=== PATIENT | female | born 1990 | race Caucasian/White ===

== ENCOUNTER 2017-02-11 03:18 | Emergency (ER) | payer BC ==
[2017-02-11 03:41] VITALS: BP 138/80
[2017-02-11 04:21] LABS: Hematocrit 40 % (35-47); Hemoglobin 13.4 g/dl (12.0-16.0); Mean Corpuscular HGB Conc 33 g/dl (31-36); Mean Corpuscular Hemoglobin 29 pg (27-31); Mean Corpuscular Volume 88 fL (80-97); Mean Platelet Volume 8 um3 (7.4-10.4); Red Blood Count 4.56 10^6/ul (4.0-5.4); Red Cell Distribution Width 14 % (10.5-15); White Blood Count 10.1 10^3/ul (3.5-10.8)
[2017-02-11 04:21] LABS: Urine Bacteria Absent (Absent)
[2017-02-11 04:23] LABS: Urine Bilirubin Negative (Negative); Urine Glucose N (Negative); Urine Nitrite N (Negative)
[2017-02-11 04:28] LABS: ALT 15 U/L (7-52); AST 16 U/L (13-39); Acetaminophen < 15 mcg/mL; Albumin 3.9 g/dL (3.2-5.2); Alcohol < 10 mg/dL (<10); Alkaline Phosphatase 50 U/L (34-104); Anion Gap 4 mmol/L (2-11); BUN/Creatinine Ratio 18.3 (8-20); Blood Urea Nitrogen 15 mg/dL (6-24); CO2 Carbon Dioxide 27 mmol/L (22-32); Calcium 8.9 mg/dL (8.6-10.3); Chloride 104 mmol/L (101-111); EGFR African American 106.8 (>60); Globulin 2.6 g/dL (2-4); Glucose 93 mg/dL (70-100); Potassium 4.1 mmol/L (3.5-5.0); Salicylate < 2.50 mg/dL (<30); Sodium 135 mmol/L (133-145); Total Protein 6.5 g/dL (6.4-8.9)
[2017-02-11 04:33] LABS: Benzodiazepine Urine Screen None Detected (None Detect)
[2017-02-11 04:40] LABS: TSH (Thyroid Stimulating Horm) 5.36 mcIU/mL (0.34-5.60)
--- NOTE | 2017-02-11 06:49 | ED ---
Keenan Martines Nikita, scribed for Herrera Bautista MD on 02/11/17 at 0359 . Psychiatric Complaint - HPI Summary HPI Summary: This patient is a 26 year old F BIBA to ED with a chief complaint of a panic attack since earlier today. Pt reports she felt this way after waking up. She tried self-soothing, which didnt help. Pt wasnt able to contact her friends, and then proceeded to feel unsafe, scared, and anxious. From then she called 911. The patient rates the pain 0/10 in severity. Symptoms aggravated by nothing. Symptoms alleviated by nothing. Patient reports she took Klonopin. Pt denies SI/HI. - History Of Current Complaint Chief Complaint: EDMentalHealth Time Seen by Provider: 02/11/17 03:42 Hx Obtained From: Patient Hx Last Menstrual Period: 12/31/15 Onset/Duration: Sudden Onset - earlier today, after waking up, Still Present Timing: Constant Character: Anxious - unsafe, scared, panic attack Aggravating Factor(s): Nothing Alleviating Factor(s): Nothing Related History: Positive For: Prior Psychiatric Issues - Allergies/Home Medications Allergies/Adverse Reactions: Allergies Allergy/AdvReac Type Severity Reaction Status Date / Time Amoxicillin Allergy Unknown Unknown Verified 01/17/16 14:15 Reaction Details PMH/Surg Hx/FS Hx/Imm Hx Endocrine/Hematology History: Denies: Hx Diabetes, Hx Thyroid Disease Cardiovascular History: Denies: Hx Hypertension Respiratory History: Denies: Hx Asthma, Hx Chronic Obstructive Pulmonary Disease (COPD) GI History: Denies: Hx Ulcer - Surgical History Surgery Procedure, Year, and Place: 2007: removal of pilonidal cyst Infectious Disease History: No Infectious Disease History: Reports: History Other Infectious Disease - HPV Denies: Hx Clostridium Difficile, Hx Hepatitis, Hx Human Immunodeficiency Virus (HIV), Hx of Known/Suspected MRSA, Hx Shingles, Hx Tuberculosis, Hx Known/ Suspected VRE, Hx Known/Suspected VRSA, Traveled Outside the [place] in Last 30 Days - Family History Known Family History: Positive: Diabetes, Other - Skin cancer, GI disease, anxiety, depression - Social History Alcohol Use: Rare Substance Use Type: Reports: None Smoking Status (MU): Never Smoked Tobacco Have You Smoked in the Last Year: No Review of Systems Negative: Fever Psychological: Other - scared, unsafe, panic attack Positive: Anxious All Other Systems Reviewed And Are Negative: Yes Physical Exam Triage Information Reviewed: Yes Vital Signs On Initial Exam: Initial Vitals Temp Pulse Resp BP Pulse Ox 98.2 F 92 20 138/80 100 02/11/17 03:33 02/11/17 03:33 02/11/17 03:33 02/11/17 03:33 02/11/17 03:33 Vital Signs Reviewed: Yes Appearance: Positive: Well-Appearing, No Pain Distress Skin: Positive: Warm, Skin Color Reflects Adequate Perfusion, Dry Head/Face: Positive: Normal Head/Face Inspection Eyes: Positive: EOMI, VJ ENT: Positive: Normal ENT inspection Neck: Positive: Supple, Nontender Respiratory/Lung Sounds: Positive: Clear to Auscultation, Breath Sounds Present Cardiovascular: Positive: RRR Abdomen Description: Positive: Nontender, Soft Bowel Sounds: Positive: Present Musculoskeletal: Positive: Normal, Strength/ROM Intact Neurological: Positive: Normal, Sensory/Motor Intact, Alert, Oriented to Person Place, Time Psychiatric: Positive: Affect/Mood Appropriate - Mittie Coma Scale Coma Scale Total: 15 Diagnostics - Vital Signs Vital Signs Temp Pulse Resp BP Pulse Ox 02/11/17 03:33 98.2 F 92 20 138/80 100 - Laboratory Lab Results: Lab Results 02/11/17 02/11/17 02/11/17 Range/Units 03:22 03:22 03:46 WBC (3.5-10.8) 10^3/ul RBC (4.0-5.4) 10^6/ul Hgb (12.0-16.0) g/dl Hct (35-47) % MCV (80-97) fL MCH (27-31) pg MCHC (31-36) g/dl RDW (10.5-15) % Plt Count (150-450) 10^3/ul MPV (7.4-10.4) um3 Neut % (Auto) (38-83) % Lymph % (Auto) (25-47) % King % (Auto) (1-9) % Eos % (Auto) (0-6) % Baso % (Auto) (0-2) % Absolute Neuts (auto) (1.5-7.7) 10^3/ul Absolute Lymphs (auto) (1.0-4.8) 10^3/ul Absolute Monos (auto) (0-0.8) 10^3/ul Absolute Eos (auto) (0-0.6) 10^3/ul Absolute Basos (auto) (0-0.2) 10^3/ul Absolute Nucleated RBC 10^3/ul Nucleated RBC % Sodium 135 (133-145) mmol/L Potassium 4.1 (3.5-5.0) mmol/L Chloride 104 (101-111) mmol/L Carbon Dioxide 27 (22-32) mmol/L Anion Gap 4 (2-11) mmol/L BUN 15 (6-24) mg/dL Creatinine 0.82 (0.51-0.95) mg/dL Est GFR ( Amer) 106.8 (>60) Est GFR (Non-Af Amer) 83.0 (>60) BUN/Creatinine Ratio 18.3 (8-20) Glucose 93 (70-100) mg/dL Calcium 8.9 (8.6-10.3) mg/dL Total Bilirubin 0.50 (0.2-1.0) mg/dL AST 16 (13-39) U/L ALT 15 (7-52) U/L Alkaline Phosphatase 50 (34-104) U/L Total Protein 6.5 (6.4-8.9) g/dL Albumin 3.9 (3.2-5.2) g/dL Globulin 2.6 (2-4) g/dL Albumin/Globulin Ratio 1.5 (1-3) TSH 5.36 (0.34-5.60) mcIU/mL Beta HCG, Quant < 0.60 mIU/mL Urine Color Straw Urine Appearance Clear Urine pH 6 (5-9) Ur Specific [place] 1.000 L (1.010-1.030) Urine Protein N (Negative) Urine Ketones Negative (Negative) Urine Blood N (Negative) Urine Nitrate N (Negative) Urine Bilirubin Negative (Negative) Urine Urobilinogen N (Negative) Ur Leukocyte Esterase Negative (Negative) Urine WBC (Auto) Absent (Absent) Urine RBC (Auto) Trace(0-2/hpf) (Absent) Urine Bacteria Absent (Absent) Urine Glucose N (Negative) Urine Ascorbic Acid N (Negative) Salicylates < 2.50 (<30) mg/dL Urine Opiates Screen None detected (None Detect) Acetaminophen < 15 mcg/mL Ur Barbiturates Screen None detected (None Detect) Ur Phencyclidine Scrn None detected (None Detect) Ur Amphetamines Screen None detected (None Detect) U Benzodiazepines Scrn None detected (None Detect) Urine Cocaine Screen None detected (None Detect) U Cannabinoids Screen None detected (None Detect) Serum Alcohol < 10 (<10) mg/dL 02/11/17 Range/Units 03:46 WBC 10.1 (3.5-10.8) 10^3/ul RBC 4.56 (4.0-5.4) 10^6/ul Hgb 13.4 (12.0-16.0) g/dl Hct 40 (35-47) % MCV 88 (80-97) fL MCH 29 (27-31) pg MCHC 33 (31-36) g/dl RDW 14 (10.5-15) % Plt Count 281 (150-450) 10^3/ul MPV 8 (7.4-10.4) um3 Neut % (Auto) 60.5 (38-83) % Lymph % (Auto) 31.1 (25-47) % King % (Auto) 6.5 (1-9) % Eos % (Auto) 1.0 (0-6) % Baso % (Auto) 0.9 (0-2) % Absolute Neuts (auto) 6.1 (1.5-7.7) 10^3/ul Absolute Lymphs (auto) 3.1 (1.0-4.8) 10^3/ul Absolute Monos (auto) 0.7 (0-0.8) 10^3/ul Absolute Eos (auto) 0.1 (0-0.6) 10^3/ul Absolute Basos (auto) 0.1 (0-0.2) 10^3/ul Absolute Nucleated RBC 0 10^3/ul Nucleated RBC % 0 Sodium (133-145) mmol/L Potassium (3.5-5.0) mmol/L Chloride (101-111) mmol/L Carbon Dioxide (22-32) mmol/L Anion Gap (2-11) mmol/L BUN (6-24) mg/dL Creatinine (0.51-0.95) mg/dL Est GFR ( Amer) (>60) Est GFR (Non-Af Amer) (>60) BUN/Creatinine Ratio (8-20) Glucose (70-100) mg/dL Calcium (8.6-10.3) mg/dL Total Bilirubin (0.2-1.0) mg/dL AST (13-39) U/L ALT (7-52) U/L Alkaline Phosphatase (34-104) U/L Total Protein (6.4-8.9) g/dL Albumin (3.2-5.2) g/dL Globulin (2-4) g/dL Albumin/Globulin Ratio (1-3) TSH (0.34-5.60) mcIU/mL Beta HCG, Quant mIU/mL Urine Color Urine Appearance Urine pH (5-9) Ur Specific [place] (1.010-1.030) Urine Protein (Negative) Urine Ketones (Negative) Urine Blood (Negative) Urine Nitrate (Negative) Urine Bilirubin (Negative) Urine Urobilinogen (Negative) Ur Leukocyte Esterase (Negative) Urine WBC (Auto) (Absent) Urine RBC (Auto) (Absent) Urine Bacteria (Absent) Urine Glucose (Negative) Urine Ascorbic Acid (Negative) Salicylates (<30) mg/dL Urine Opiates Screen (None Detect) Acetaminophen mcg/mL Ur Barbiturates Screen (None Detect) Ur Phencyclidine Scrn (None Detect) Ur Amphetamines Screen (None Detect) U Benzodiazepines Scrn (None Detect) Urine Cocaine Screen (None Detect) U Cannabinoids Screen (None Detect) Serum Alcohol (<10) mg/dL Result Diagrams: 02/11/17 03:46 02/11/17 03:46 Lab Statement: Any lab studies that have been ordered have been reviewed, and results considered in the medical decision making process. Course/Dx - Course Assessment/Plan: This patient is a 26 year old F BIBA to ED with a chief complaint of a panic attack since earlier today. Pt reports she felt this way after waking up. She tried self-soothing, which didnt help. Pt wasnt able to contact her friends, and then proceeded to feel unsafe, scared, and anxious. From then she called 911. The patient rates the pain 0/10 in severity. Symptoms aggravated by nothing. Symptoms alleviated by nothing. Patient reports she took Klonopin. Pt denies SI/HI. Medications reviewed. BP noted and advised to follow up with PCP. DISCHARGE HOME AFTER MHE - Differential Dx/Clinical Impression Provider Diagnosis: Mental health problem Discharge - Discharge Plan Condition: Stable Disposition: HOME Referrals: No Primary Care Phys,NOPCP [Primary Care Provider] - Additional Instructions: Per completion of a mental health evaluation, you are cleared for release and do not require inpatient psychiatric hospitalization at this time. Please go to nearest emergency room or call 911 if safety concerns arise or condition worsens. IMPORTANT PHONE NUMBERS: [facility] Services Unit: [facility] Emergency [facility] Flex Unit: Suicide Prevention and Crisis Services: National Suicide Prevention Lifeline: [phone] 657-DBGK ([phone]) [facility] Clinic: [facility] Outreach for Older Adults: [facility] Mental Health Association: [facility]: [facility] Police: [facility] Sheriff: [place] [employer]: OUTPATIENT SERVICES You have been referred to your outpatient provider Malina Barraza NP. It is our recommendation that you call your provider to secure an appointment on their next business day. No changes or adjustments were made to your medication regimen during this evaluation. Continue medications as prescribed by your outpatient providers. Malina Barraza NPP [address], [place] [address] The [facility] Mobile Crisis Team will be in contact with you later today, Saturday February 11, 2017. If you require further assistance connecting to outpatient providers, please contact our Mental Health Unit at . The documentation as recorded by the Keenan garcia Nikita accurately reflects the service I personally performed and the decisions made by me, Herrera Bautista MD.
== END 2017-02-11 05:27 | disposition home or self-care (01) ==
LOC: ED 03:18
DX: Z00.8 Encounter for other general examination (principal); F41.9 Anxiety disorder, unspecified
CPT/HCPCS: 36415; 80053; 80307; 80320; 80329; 81003; 84443; 84702; 85025; 99284; G0480

== ENCOUNTER 2017-05-26 16:37 | Emergency (ER) | payer BC ==
[2017-05-26 16:53] VITALS: BP 117/67
--- NOTE | 2017-05-26 17:32 | UC ---
Throat Pain/Nasal Hossein HPI - HPI Summary HPI Summary: Pt presents with ST and sinus congestion that started 1 week ago. Over the last 2-3 days she developed a dry cough and body aches. She has been taking mucinex without relief. Denies fever, chills, SOB, chest pain, abdominal pain, N/V/D/C - History of Current Complaint Chief Complaint: UCGeneralIllness Stated Complaint: URI Time Seen by Provider: 05/26/17 17:32 Hx Obtained From: Patient Hx Last Menstrual Period: 04/26/17 Onset/Duration: Gradual Onset Severity: Moderate Pain Intensity: 5 Pain Scale Used: 0-10 Numeric Cough: Nonproductive - Allergies/Home Medications Allergies/Adverse Reactions: Allergies Allergy/AdvReac Type Severity Reaction Status Date / Time Amoxicillin Allergy Unknown Unknown Verified 05/26/17 16:53 Reaction Details Home Medications: Home Medications Amphetamine-Dextroamphetamine [Adderall 10 mg-] 10 mg PO BID PRN MDD 20 [History Confirmed 05/26/17] Diazepam TAB(*) [Valium TAB(*)] 2 mg PO QID PRN 05/26/17 [History Confirmed 07/12] PMH/Surg Hx/FS Hx/Imm Hx Previously Healthy: Yes Psychological History: Anxiety, Depression - Surgical History Surgical History: Yes Surgery Procedure, Year, and Place: 2007: removal of pilonidal cyst - Family History Known Family History: Positive: Diabetes, Other - Skin cancer, GI disease, anxiety, depression - Social History Occupation: Employed Full-time Lives: With Family Alcohol Use: None Substance Use Type: None Smoking Status (MU): Never Smoked Tobacco Have You Smoked in the Last Year: No Review of Systems Constitutional: Other - Body aches Skin: Negative Eyes: Negative ENT: Nasal Discharge, Sinus Congestion, Sinus Pain/Tenderness Respiratory: Cough Cardiovascular: Negative Gastrointestinal: Negative All Other Systems Reviewed And Are Negative: Yes Physical Exam Triage Information Reviewed: Yes Appearance: Well-Appearing, Well-Nourished Vital Signs: Initial Vital Signs Temp 98.4 F 05/26/17 16:49 Pulse 76 05/26/17 16:49 Resp 18 05/26/17 16:49 BP 117/67 05/26/17 16:49 Pulse Ox 100 05/26/17 16:49 Vital Signs Reviewed: Yes Eyes: Positive: Conjunctiva Clear. Negative: Conjunctiva Inflamed, Discharge ENT: Positive: Hearing grossly normal, Pharynx normal, Nasal congestion, Nasal drainage, TMs normal, Sinus tenderness, Uvula midline. Negative: Pharyngeal erythema, TM bulging, TM dull, TM red, Tonsillar swelling, Tonsillar exudate, Hoarse voice Neck: Positive: Supple, Nontender, No Lymphadenopathy Respiratory: Positive: Chest non-tender, Lungs clear, No respiratory distress, No accessory muscle use, Wheezing - Mild left lung > right lung Cardiovascular: Positive: RRR, No Murmur, Pulses Normal Neurological: Positive: Alert Psychological: Positive: Age Appropriate Behavior Skin: Negative: rashes Throat Pain/Nasal Course/Dx - Course Course Of Treatment: POC flu negative. Suspect sinusitis with bronchitis. Rx for tessalon, albuterol HFA, and zpak. - Differential Dx/Diagnosis Differential Diagnosis/HQI/PQRI: Laryngitis, Otitis Media, Sinusitis, Tonsillitis, URI Provider Diagnoses: Sinusitis. Bronchitis Discharge - Discharge Plan Condition: Stable Disposition: HOME Prescriptions: Albuterol HFA INHALER* [Ventolin HFA Inhaler*] 2 puff INH Q6H PRN #1 mdi PRN Reason: Sob/Wheezing Azithromycin TAB* [Zithromax TAB (Z-DELLA) 250 mg #6 tabs] 2 tab PO .TODAY, THEN 1 DAILY #1 della Benzonatate CAP* [Tessalon 100 MG CAP*] 100 mg PO TID #21 cap Patient Education Materials: Sinusitis (ED), Acute Bronchitis (ED) Forms: *Work Release Referrals: Malcolm Childs MD [Primary Care Provider] - Additional Instructions: If you develop a fever, shortness of breath, chest pain, new or worsening symptoms - please call your PCP or go to the ED.
== END 2017-05-26 18:25 | disposition home or self-care (01) ==
LOC: UCEAST 16:37
DX: J32.9 Chronic sinusitis, unspecified (principal); J40 Bronchitis, not specified as acute or chronic; Z88.1 Allergy status to other antibiotic agents; F41.9 Anxiety disorder, unspecified; F32.9 Major depressive disorder, single episode, unspecified
CPT/HCPCS: 87502; 99212; G0463

== ENCOUNTER 2017-11-24 11:08 | Emergency (ER) | payer BC ==
[2017-11-24 11:15] VITALS: BP 119/75
[2017-11-24] MEDS ORDERED: Ondansetron ODT TAB* 4 MG PO ONE (11:37)
--- NOTE | 2017-11-24 11:43 | UC ---
Headache HPI - HPI Summary HPI Summary: The patient is a 27-year-old female who presents with a left hemicranial headache that started this a.m. The headache started up gradually around her left eye and then after 20 minutes got markedly worse. The headache radiates to her left lateral neck. When the headache was at its worst she had severe nausea and was diaphoretic. She then had an episode of diarrhea. She has taken aspirin and Advil and Tylenol and her headache is improving. She has never had a CAT scan of the brain. She has had a diagnosis of migraines in the past. This is the most intense headache she has ever and is atypical of her usual migraines. - History Of Current Complaint Chief Complaint: UCHeadache Stated Complaint: HEADACHE/NAUSEA Time Seen by Provider: 11/24/17 11:26 Hx Obtained From: Patient Hx Last Menstrual Period: bcp Onset/Duration: Gradual Onset, Lasting Hours Onset Of Symptoms: Still Present Initially Headache Was: "Worst Headache Ever", Initial Pain Scale(0-10)= - 4 Currently Pain Is: Current Pain Scale(0-10)= - 8 Pain Intensity: 8 Pain Scale Used: 0-10 Numeric Timing: Constant Character: Throbbing Location of Headache: Frontal - L Aggravating Factor(s): Nothing Allevating Factor(s): Medication Associated Signs And Symptoms: Positive: Nausea, Neck Pain - Allergies/Home Medications Allergies/Adverse Reactions: Allergies Allergy/AdvReac Type Severity Reaction Status Date / Time amoxicillin Allergy anaph Verified 11/24/17 11:18 Home Medications: Home Medications Desogestrel-Ethinyl Estradiol [Novtequila 28 Day Tablet] 1 tab PO DAILY 11/24/17 [ History Confirmed 11/24/17] PMH/Surg Hx/FS Hx/Imm Hx Previously Healthy: Yes Psychological History: Anxiety, Depression - Surgical History Surgical History: Yes Surgery Procedure, Year, and Place: 2008: removal of pilonidal cyst - Family History Known Family History: Positive: Hypertension, Diabetes, Other - Skin cancer, GI disease, anxiety, depression - Social History Alcohol Use: None Substance Use Type: None Smoking Status (MU): Never Smoked Tobacco Have You Smoked in the Last Year: No Review of Systems Eyes: Photophobia ENT: Other - phnophobia Gastrointestinal: Diarrhea, Nausea Neurological: Headache Is Patient Immunocompromised?: No All Other Systems Reviewed And Are Negative: Yes Physical Exam Triage Information Reviewed: Yes Appearance: Well-Appearing, No Pain Distress, Well-Nourished Vital Signs: Initial Vital Signs Temp 97.1 F 11/24/17 11:12 Pulse 80 11/24/17 11:12 Resp 18 11/24/17 11:12 BP 119/75 11/24/17 11:12 Pulse Ox 100 11/24/17 11:12 Vital Signs Reviewed: Yes Eye Exam: Normal Eyes: Positive: Conjunctiva Clear, Other: - eomi/perrl, fundi benign ENT: Positive: Hearing grossly normal. Negative: Nasal congestion, Nasal drainage, Trismus, Muffled voice, Hoarse voice Neck: Positive: Supple, Nontender, No Lymphadenopathy Respiratory: Positive: Lungs clear, Normal breath sounds, No respiratory distress Cardiovascular: Positive: RRR, No Murmur Musculoskeletal: Positive: ROM Intact, No Edema Neurological: Positive: Alert, Muscle Tone Normal, Other: - non focal exam , GCS 15/15 Psychological Exam: Normal Skin Exam: Normal Diagnostics - Radiology No standard instances Xray Interpretation: No Acute Changes - CT brain Radiology Interpretation Completed By: Radiologist Re-Evaluation - Re-Evaluation First Eval Re-Evaluation Time: 12:47 Change: Improved - no nausea, GALLAGHER 4 Headache Course/Dx - Differential Dx/Diagnosis Provider Diagnoses: migraine headache Discharge - Sign-Out/Discharge Documenting (check all that apply): Discharge/Admit/Transfer - Discharge Plan Condition: Stable Disposition: HOME Patient Education Materials: Migraine Headache (ED) Forms: *Work Release Referrals: Malcolm Childs MD [Primary Care Provider] - 2 Days (recheck in 2-7 days) Additional Instructions: recheck for new or worsening symptoms - Billing Disposition and Condition Condition: STABLE Disposition: Home
--- NOTE | 2017-11-24 12:12 | RAD ---
HISTORY: left hemicranial GALLAGHER COMPARISONS: None TECHNIQUE: Multiple contiguous axial CT scans were obtained of the head without intravenous contrast. FINDINGS: HEMORRHAGE/INFARCT: There is no hemorrhage or acute infarct. MASSES/SHIFT: There is no mass or shift. EXTRA-AXIAL SPACES: There are no extra-axial fluid collections. SULCI AND VENTRICLES: The sulci and ventricles are normal in size and position for the patient's stated age. CEREBRUM: There are no focal parenchymal abnormalities. BRAINSTEM: There are no focal parenchymal abnormalities. CEREBELLUM: There are no focal parenchymal abnormalities. VESSELS: The vessels are grossly normal. PARANASAL SINUSES: The paranasal sinuses are clear. ORBITS: The orbits are unremarkable. BONES AND SOFT TISSUE: No bone or soft tissue abnormalities are noted. OTHER: None IMPRESSION: NO ACUTE INTRACRANIAL PATHOLOGY.
== END 2017-11-24 13:04 | disposition home or self-care (01) ==
LOC: UCEAST 11:08
DX: G43.909 Migraine, unspecified, not intractable, without status migrainosus (principal); Z88.0 Allergy status to penicillin; M54.2 Cervicalgia; R19.7 Diarrhea, unspecified
CPT/HCPCS: 70450; 99212; A9270-GY; G0463

== ENCOUNTER 2018-03-14 01:41 | Observation (INO) | payer SELFPAY ==
--- NOTE | 2018-03-14 02:36 | ED ---
Complex/Multi-Sys Presentation - HPI Summary HPI Summary: 27 year old F presenting to [facility] accompanied by male friend Fernando with a chief complaint of vomiting x1 since 00:00 today. Symptoms aggravated by nothing. Symptoms alleviated by nothing. Patient denies chest pain. Patient states that she took her daily medication twice yesterday. She took them once in the morning yesterday at 10:00, then again at 16:00 yesterday because she got confused. She looked at her pill organizer and realized she took her medications twice. At 22:00 yesterday, patient started feeling dizzy. Then at 00 :00 she vomited. Patient called poison control, who referred her to ED. She additionally complains of headache, neck pain, and abdominal discomfort. Hx anxiety and depression. She denies suicidal ideation. LN 03/01/18. At 10:00 yesterday: 300 mg Wellbutrin XR 100 mg Wellbutrin SR 60 mg Fluoxetine 2000 mg Vitamin D Iron supplement Aviane At 16:00 yesterday: 300 mg Wellbutrin XR 100 mg Wellbutrin SR 60 mg Fluoxetine 2000 mg Vitamin D Iron supplement Aviane At 22:00 yesterday: 10pm Tylenol x2 At 00:00 today: 5 mg Diazepam - History Of Current Complaint Chief Complaint: EDNauseaVomitDiarrh Time Seen by Provider: 03/14/18 02:22 Hx Obtained From: Patient Onset/Duration: Sudden Onset, Lasting Hours - 00:00 today, Still Present Aggravating Factor(s): Nothing Alleviating Factor(s): Nothing Associated Signs And Symptoms: Positive: Other - Dizziness, headache, neck pain , and abdominal discomfort. Negative: Chest Pain - Allergies/Home Medications Allergies/Adverse Reactions: Allergies Allergy/AdvReac Type Severity Reaction Status Date / Time amoxicillin Allergy anaph Verified 03/14/18 01:51 Home Medications: Home Medications BuPROPion XL* [Bupropion XL*] 1 tab PO QAM 03/14/18 [History Confirmed 03/14/18] buPROPion SR TAB* [Wellbutrin SR TAB*] 1 tab PO QAM 03/14/18 [History Confirmed 03/14/18] PMH/Surg Hx/FS Hx/Imm Hx Previously Healthy: No Endocrine/Hematology History: Denies: Hx Diabetes, Hx Thyroid Disease Cardiovascular History: Denies: Hx Hypertension Respiratory History: Denies: Hx Asthma, Hx Chronic Obstructive Pulmonary Disease (COPD) GI History: Denies: Hx Ulcer Psychiatric History: Reports: Hx Anxiety, Hx Depression Denies: Hx of Violent Episodes Against Others - Surgical History Surgery Procedure, Year, and Place: 2007: removal of pilonidal cyst Infectious Disease History: No Infectious Disease History: Reports: History Other Infectious Disease - HPV Denies: Hx Clostridium Difficile, Hx Hepatitis, Hx Human Immunodeficiency Virus (HIV), Hx of Known/Suspected MRSA, Hx Shingles, Hx Tuberculosis, Hx Known/ Suspected VRE, Hx Known/Suspected VRSA, Traveled Outside the [place] in Last 30 Days - Family History Known Family History: Positive: Hypertension, Diabetes, Other - Skin cancer, GI disease, anxiety, depression - Social History Alcohol Use: None Hx Substance Use: No Substance Use Type: Reports: None Hx Tobacco Use: No Smoking Status (MU): Never Smoked Tobacco Have You Smoked in the Last Year: No Review of Systems Negative: Chest Pain Positive: Vomiting - x1, Other - abdominal discomfort Positive: Other - neck pain Neurological: Other - dizziness Positive: Headache Positive: Other - NEGATIVE: suicidal ideation All Other Systems Reviewed And Are Negative: Yes Physical Exam - Summary Physical Exam Summary: GENERAL: Patient is a well-developed and nourished F who is lying comfortable in the stretcher. Patient is not in any acute respiratory distress. HEAD AND FACE: Normocephalic EYES: PERRLA, EOMI x 2. EARS: Hearing grossly intact. MOUTH: Oropharynx within normal limits. NECK: Supple, trachea is midline, no adenopathy, no JVD, no carotid bruit. CHEST: Symmetric, no tenderness at palpation LUNGS: Clear to auscultation bilaterally. No wheezing or crackles. CVS: Regular rate and rhythm, S1 and S2 present, no murmurs or gallops appreciated. ABDOMEN: Soft, non-tender. Bowel sounds are normal. No abdominal abnormal pulsations. EXTREMITIES: Full ROM in all major joints, no edema, no cyanosis or clubbing. NEURO: Alert and oriented x 3. No acute neurological deficits. Speech is normal and follows commands. SKIN: Dry and warm Triage Information Reviewed: Yes Vital Signs On Initial Exam: Initial Vitals Temp Pulse Resp BP Pulse Ox 97.1 F 77 18 130/79 100 03/14/18 01:49 03/14/18 01:49 03/14/18 01:49 03/14/18 01:49 03/14/18 01:49 Vital Signs Reviewed: Yes Diagnostics - Vital Signs Vital Signs Temp Pulse Resp BP Pulse Ox 03/14/18 01:49 97.1 F 77 18 130/79 100 - Laboratory Lab Statement: Any lab studies that have been ordered have been reviewed, and results considered in the medical decision making process. - EKG 0312 Cardiac Rate: NL - 81 BPM EKG Rhythm: Sinus Rhythm EKG Interpretation: Normal intervals 0334 Cardiac Rate: NL - 85 BPM EKG Rhythm: Sinus Rhythm EKG Interpretation: Left atrial enlargement Complex Multi-Symp Course/Dx Course Of Treatment: 27 year old F presenting to [facility] accompanied by male friend Fernando with a chief complaint of vomiting x1 since 00:00 today. Per nurse who spoke with poison control, patient should be monitored on secured entrance monitor for 24 hours since she took more than 400 mg of Wellbutrin, so patient is at risk for seizure and serotonin syndrome. Recommended to watch for temperature, and tachycardia. Also recommends EKG. Case discussed with hospitalist, Dr. Best. I discussed results with patient. The patient agrees with this plan. - Diagnoses Provider Diagnoses: Accidental overdose - Physician Notifications Discussed Care Of Patient With: Anne Best Time Discussed With Above Provider: 03:00 Instructed by Provider To: Other - Dr. Best, hospitalist, agrees to admit patient. Discharge - Sign-Out/Discharge Documenting (check all that apply): Patient Departure - Admit - Discharge Plan Condition: Improved Disposition: ADMITTED TO [facility] - Billing Disposition and Condition Condition: IMPROVED Disposition: Admitted to [facility] - Attestation Statements Document Initiated by Scribe: Yes Documenting Scribe: Bettina Taylor Provider For Whom Scribe is Documenting (Include Credential): Facundo Reese MD Scribe Attestation: I, Bettina Taylor, scribed for Facundo Reese MD on 03/15/18 at 0319. Scribe Documentation Reviewed: Yes Provider Attestation: The documentation as recorded by the scribe, Bettina Taylor accurately reflects the service I personally performed and the decisions made by me, Facundo Reese MD
[2018-03-14] MEDS ORDERED: Ondansetron ODT TAB* 4 MG SL ONE (03:06)
[2018-03-14] MEDS ORDERED: Ibuprofen TAB* 600 MG PO ONE (03:07)
[2018-03-14] MEDS ORDERED: Acetaminophen TAB* 325 MG PO PRN (04:08)
[2018-03-14] MEDS ORDERED: Diazepam TAB(*) 5 MG PO PRN (04:18)
[2018-03-14] MEDS ORDERED: Ondansetron INJ* 2 MG/ML VIAL IV PRN (04:21)
[2018-03-14 07:40] VITALS: BP 128/54
--- NOTE | 2018-03-14 08:56 | HP ---
HISTORY AND PHYSICAL: DATE OF ADMISSION: 03/14/18 TIME OF ADMISSION: 4 a.m. PRIMARY CARE PHYSICIAN: Dr. Childs. CHIEF COMPLAINT: Accidental Wellbutrin overdose. HISTORY OF PRESENT ILLNESS: This is a 27-year-old female with a history of depression who presents after accidentally taking her Wellbutrin and fluoxetine twice yesterday. She takes her medications in the morning usually, but then accidentally also took them in the afternoon because she thought she had forgotten the morning dose. She realized it after she took the second dose and called Poison Control who directed her to the emergency department. She is currently having some achiness, a little chest discomfort that lasted approximately 15 seconds and nausea. She denies intentional overdose and no suicidal ideations or intentions. She has no palpitations. No fevers or chills. No diarrhea. She does feel that she is a little confused, but also admits that she thinks that might be because it was the middle of the night. Her boyfriend is here with her and he thinks she is herself. Her doses of Wellbutrin and fluoxetine are 400 mg and 60 mg daily respectively, so she took a total of 800 mg of Wellbutrin and 120 mg of fluoxetine within 6 hours between the hours of 10 a.m. and 4 p.m.; the last ingestion was 4 p.m. PAST MEDICAL HISTORY: 1. Anxiety and depression. 2. Iron deficiency. PAST SURGICAL HISTORY: None. FAMILY HISTORY: Hypertension and diabetes. SOCIAL HISTORY: She does not smoke cigarettes. She does not use alcohol. She is starting a new job at [employer] on Thursday. REVIEW OF SYSTEMS: As per the HPI. PHYSICAL EXAMINATION GENERAL: Alert, well-appearing female, in no distress. Her boyfriend is at the bedside. VITAL SIGNS: Temperature 97.1, heart rate 79, respiratory rate 21, pulse ox 100 % on room air, blood pressure 127/77. HEENT: Pupils equal, round, and reactive to light. No nystagmus. No conjunctival injection. Oral mucosa is moist. No pharyngeal exudates. NECK: No JVP. No cervical adenopathy. LUNGS: Clear bilaterally. CHEST: Regular rate and rhythm. No murmurs. ABDOMEN: Soft, nontender, nondistended. No guarding or rebound. EXTREMITIES: Strength 5/5 throughout. Sensation is intact. NEUROLOGIC: She is oriented x3. Follows all commands and answers my questions appropriately. IMAGING: EKG: Normal sinus rhythm at 85, normal axis, normal intervals, no ST or T changes. ASSESSMENT AND PLAN: This is a 27-year-old female with history of anxiety and depression who presents with an accidental overdose of Wellbutrin and fluoxetine. Accidental overdose. She is symptomatic with some nausea, vomiting, dizziness, and achiness and she agrees to be observed until 4 p.m. today with Poison Control and they recommend monitoring on telemetry. She is at risk for seizures and serotonin syndrome. They recommended no need for labs since her QTc is normal; however, if her QTc prolongs, she should have electrolytes drawn. We will give her supportive care with antiemetics as needed and IV fluids. We will hold her Wellbutrin and fluoxetine. Poison Control recommends monitoring her until 24 hours after her last ingestion, which was 4 p.m. on . She seizure precautions. [id number]/[facility] #: [id number] CLAIRE
[2018-03-14] MEDS ORDERED: Cholecalciferol TAB* 1000 UNITS PO SCH (09:00)
--- NOTE | 2018-03-14 12:51 | DS ---
CC: Dr. Childs DISCHARGE SUMMARY: DATE OF ADMISSION: DATE OF DISCHARGE: 03/14/18 HISTORY OF PRESENT ILLNESS/HOSPITAL COURSE: This 27-year-old woman was admitted for accidental overd ose of fluoxetine and bupropion. She took her usual morning medications on Thursday, the day of admi ssion. She has a 7-day container. at 4 in the afternoon, she became worried that she had not taken i t. She mistakenly looked at the Thursday part of the 7-day container and so there were pills there and took them, having therefore taken double the dose of fluoxetine and bupropion. Whether she realized that at first or not is not clear, around midnight, her boyfriend was concerned and suggested they c all Poison Control. She was advised to come to the emergency room. She was admitted for seizure pre cautions and for monitoring of her QTc interval. Her QTc interval has maintained. Corrected QTc has stayed normal until the time of this dictation. She will have another EKG with monitoring of her QTc just before discharged at 4 p.m. today. She di tuyet grant in the hospital. She was given vitamin D, her usual dose as well as p.r.n. diazepam, acetamin ophen, ibuprofen, ondansetron p.o., all p.r.n. She was advised to resume her fluoxetine and bupropio n on Thursday morning 03/15/18. FINAL DIAGNOSES: 1. Accidental medication overdose. 2. History of anxiety and depression. DISCHARGE MEDICATIONS: 1. Fluoxetine 60 mg daily. 2. Vitamin D3 2000 units daily. 3. Iron 90 mg daily. 4. Diazepam 5 mg four times a day, p.r.n. 5. Bupropion SR one tablet every morning. 6. Bupropion XL one tablet every morning. CONDITION ON DISCHARGE: Good. DISPOSITION ON DISCHARGE: Home. [id number]/[facility] #: [id number]
== END 2018-03-14 12:55 | disposition home or self-care (01) ==
LOC: ED 01:41 → MEDTELE 04:08
PROVIDERS: ADMIT Internal Medicine; ATTEND Internal Medicine
DX: T43.221A Poisoning by selective serotonin reuptake inhibitors, accidental (unintentional), initial encounter (principal); T43.291A Poisoning by other antidepressants, accidental (unintentional), initial encounter; F41.8 Other specified anxiety disorders; Y92.9 Unspecified place or not applicable; E61.1 Iron deficiency; R51 Headache
CPT/HCPCS: 93005; 96374; 96375; 99284; A9270-GY; G0378

== ENCOUNTER 2019-05-13 09:07 | Emergency (ER) | payer OTHER ==
--- OUTSIDE RECORDS SUMMARY | 2019-05-13 09:12 | XMS REPORT | Continuity of Care Document ---
:1990 External Reference #:[id number] Author Name Tameka Lawrence MD (transmitted by agent of provider Valorie Emerson) Address [address], [address] [place] [address] Care Team Providers Name Role Phone Malcolm Childs MD - Internal Care Team Information Piece Work Checker [phone] Medicine Problems Active Problems Provider Date Poisoning by other antidepressants, accidental Anne Best DO Onset: (unintentional), initial encounter Chest pain Anne Best DO Onset: 03/14/2018 Anxiety state Anne Best DO Onset: 03/14/2018 Iron deficiency Anne Best DO Onset: 03/14/2018 Social History Type Date Description Comments Sex Unknown Tobacco Use Start: Unknown Patient has never smoked Allergies, Adverse Reactions, Alerts Active Allergies Reaction Severity Comments Date Amoxicillin anaphylaxis Severe 02/24/2019 Medications Active Medications SIG Qnty Indications Ordering Provider Date Wellbutrin XL 1 by mouth every Unknown 300mg day Tablets ER 24HR Clindamycin apply externally at Unknown Phos-Benzoyl Perox bedtime 1-5% Gel Diazepam take 1 tab by mouth Unknown 5mg Tablets every 4 hrs. as needed Fluoxetine HCL 1 by mouth every Unknown 20mg day Capsules Fluoxetine HCL 1 by mouth every Unknown 40mg day Capsules Iron Unknown Vitamin D by mouth everyday Unknown 1000Unit Tablets Immunizations Description No Information Available Vital Signs Date Vital Result Comment 04/01/2019 7:50am Height 62 inches 5'2" Weight 300.00 lb Heart Rate 100 /min BP Systolic 118 mmHg BP Diastolic 68 mmHg O2 % BldC Oximetry 99 % BMI (Body Mass Index) 54.9 kg/m2 Results Description No Information Available Procedures Description No Information Available Medical Devices Description No Information Available Encounters Type Date Location Provider Dx Diagnosis Office Visit 04/01/2019 Pul[facility]ology [facility] Sleep Tameka Lawrence MD R06.83 Snoring 8:00a [facility] R53.83 Other fatigue Assessments Date Code Description Provider 04/01/2019 R06.83 Snoring Tameka Lawrence MD 04/01/2019 R53.83 Other fatigue Tameka Lawrence MD Plan of Treatment Future Appointment(s):05/13/2019 8:00 am - Shari Ye NP at [facility]04/01/2019 - Tameka Lawrence, MDR06.83 SnoringNew Orders:Sleep Study, Ordered: 04/01/19R53.83 Other fatigue Functional Status Description No Information Available Mental Status Description No Information Available Referrals Description No Information Available
--- OUTSIDE RECORDS SUMMARY | 2019-05-13 09:12 | XMS REPORT | Summary of Care ---
:1990 Author Organization [facility] Address [address] [place] [address] Care Team Providers Name Role Phone Malcolm Childs Primary Care Provider Reason for Visit Reason Comments Weight Check Patient has gained two pounds. Encounter Details Date Type Department Care Team Description 04/27/2019 Office Visit [facility] Malcolm Childs, Extreme obesity (Primary Dx); Medicine Missed menses [address] [place] [address] [place] [address] [phone] Allergies Active Allergy Reactions Severity Noted Date Comments Kdc:Amoxicillin+Edetic Acid+Sodium Anaphylaxis 01/12/2015 Mother reported Benzoate documented as of this encounter (statuses as of 04/28/2019) Medications Medication Sig Dispensed Refills Start Date End Date Status buPROPion Take 300 mg by 0 Active (WELLBUTRIN XL) mouth DAILY. 300 MG Oral TABLET SR 24 HR Iron Oral Tab Take by mouth 0 Active DAILY. Vitamin D, Take 1 Tab by 30 Cap 11 02/24/2017 Active Cholecalciferol, mouth DAILY. 1000 units Oral Cap Clindamycin 1 Appl by Apply 50 g 5 02/24/2017 Active Phos-Benzoyl externally route Perox 1-5 % Apply EVERY BEDTIME. externally GelIndications: Other acne fluoxetine Take 1 Cap by 30 Cap 0 03/07/2017 Active (PROZAC) 20 MG mouth DAILY. For Oral use with 40mg CapIndications: cap Anxiety diazepam (VALIUM) Take 5 mg by 0 Active 5 MG Oral Tab mouth EVERY FOUR HOURS NEEDED for anxiety. Fluoxetine HCl 40 TAKE 1 CAPSULE 30 Cap 10 08/24/2017 Active MG Oral BY MOUTH EVERY CapIndications: DAY. FOR USE Anxiety WITH 20MG CAPSULE Etonogestrel-Ethi Place 1 Device 0 Active nyl Estradiol into the vagina (NUVARING) EVERY 28 DAYS. 0.12-0.015 MG/24HR Vaginal RING Levonorgestrel-Et Take 1 Tab by 0 04/27/2019 Discontinued hinyl Estrad mouth DAILY. (AVIANE PO) documented as of this encounter (statuses as of 04/28/2019) Active Problems Problem Noted Date Attention deficit hyperactivity disorder (ADHD), combined type 10/31/2016 Generalized anxiety disorder 01/12/2015 Moderate episode of recurrent major depressive disorder 01/12/2015 Overview: Gudelia Barraza [facility] Therapist Jacqueline Montes [facility] Morbid obesity 01/12/2015 Overview: BMI Dec documented as of this encounter (statuses as of 04/28/2019) Resolved Problems Problem Noted Date Resolved Date Abdominal pain, generalized 01/12/2015 01/19/2019 Overview: Recurrent history diverticulitis and epiploic apendigitis Colonoscopy negative [facility] documented as of this encounter (statuses as of 04/28/2019) Immunizations Name Administration Dates Next Due Influenza (IM) Preservative Free 03/02/2019 documented as of this encounter Social History Tobacco Use Types Packs/Day Years Used Date Never Smoker Smokeless Tobacco: Never Used Alcohol Use Drinks/Week oz/Week Comments No 0 Standard drinks or equivalent 0.0 Sex Assigned at Date Recorded Not on file Job Start Date Occupation Industry Not on file Not on file Not on file Travel History Travel Start Travel End No recent travel history available. documented as of this encounter Last Filed Vital Signs Vital Sign Reading Time Taken Comments Blood Pressure 128/70 04/27/2019 8:00 AM EST Pulse 68 04/27/2019 8:00 AM EST Temperature - - Respiratory Rate - - Oxygen Saturation - - Inhaled Oxygen Concentration - - Weight 137.4 kg (303 lb) 04/27/2019 8:00 AM EST Height 157.5 cm (5' 2") 04/27/2019 8:00 AM EST Body Mass Index 55.42 04/27/2019 8:00 AM EST documented in this encounter Patient Instructions Patient InstructionsEstill, Malcolm R, MD - 04/27/2019 7:40 AM ESTRegular aerobic exercise for 30 minutes 6-7 days per week is very important for you. When you begin an exercise program start slowly with 15 minutes 4-5 times per week and work you way up to 30 minutes7 days weekly. Develop a 7 day per week exercise Plan Eating goals: 1. Bring in healthy snacks at work 2. Do not eat at your desk do 15 minute lunch break walk 3. Bring in lunch to work Follow up me 2-3 monthsElectronically signed by Malcolm Childs MD at 2018 8:30 AM EST documented in this encounter Progress Notes Malcolm Childs MD - 04/27/2019 7:40 AM EST Follow up to weight loss plan She has missed menses and urine preg test negative today I spent 15 minutes with the patient, greater than half of this time in direct [id number] counseling addressing the current condition and plan of care. Wt Readings from Last 3 Encounters: 04/27/19 303 lb (137.4 kg) 03/02/19 301 lb (136.5 kg) 01/19/19 300 lb (136.1 kg) ICD-9-CM ICD-10-CM 1. Extreme obesity 278.00 E66.8 2. Missed menses 626.4 N92.6 HCG, QUALITATIVE, URINE (AMB POCT) Patient Instructions Regular aerobic exercise for 30 minutes 6-7 days per week is very important for you. When you begin an exercise program start slowly with 15 minutes 4-5 times per week and work you way up to 30 minutes7 days weekly. Develop a 7 day per week exercise Plan Eating goals: 1. Bring in healthy snacks at work 2. Do not eat at your desk do 15 minute lunch break walk 3. Bring in lunch to work Follow up me 2-3 months Malcolm Childs MDElectronically signed by Malcolm Childs MD at 2018 8:52 AM ESTdocumented in this encounter Plan of Treatment Date Type Specialty Care Team Description 06/29/2019 Office Visit Internal Medicine Malcolm Childs MD [address] [place] [address] [phone] Health Maintenance Due Date Last Done Comments PAP SMEAR 10/31/2017 10/31/2014 (Previously completed) DEPRESSION SCREENING 01/20/2020 01/19/2019, 01/19/2019 HIV SCREENING Completed 11/15/2015 HPV IMMUNIZATION SERIES Aged Out No longer eligible based on patient's age to complete this topic MENINGOCOCCAL VACCINE IMM Aged Out No longer eligible based on patient's age to complete this topic PNEUMOCOCCAL 0-64 YRS Aged Out No longer eligible based on patient's age to complete this topic documented as of this encounter Goals Goal Patient Goal Associated Recent Patient-Stated? Author Type Problems Progress Depression Depression 21 No Naz, screen (PHQ-9) (01/19/2019 Malcolm Connell, total score < 5 7:43 AM EDT) Note: This is an individualized treatment (depression) goal for Perla Cordero: Displayed above is your goal for a depression screening (PHQ-9) score that would indicate good control of your depression. Keep a regular sleep schedule Lifestyle Malcolm Carlos MD Note: This is an individualized lifestyle goal for Perla Cordero: Please maintain a regular sleep schedule. This may help with some symptoms of depression. Take all prescribed medications as Self-management Malcolm Carlos MD directed Note: This is an individualized self-management goal for Perla Cordero: Please take all prescribed medications as directed. 1. Do not skip doses. If you cannot afford your medications, talk with your doctor. 2. Use a pill reminder system such as a pill box if needed. Your pharmacist can help you with this. 3. Contact your Pharmacy 5 days before your medication runs out. If you cannot take your medications for any reasons, talk with your doctor. 4. Please bring all of your medication bottles and inhalers (or a list of all your medications/inhalers) with you to every visit. Potential barriers to meeting all of your care plan goals will continue to be addressed on an ongoing basis. documented as of this encounter Procedures Procedure Name Priority Date/Time Associated Diagnosis Comments HCG, QUALITATIVE, Routine 04/27/2019 8:03 AM Missed menses Results for this URINE (AMB POCT) EST procedure are in the results section. documented in this encounter Results HCG, QUALITATIVE, URINE (AMB POCT) (04/27/2019 8:03 AM EST) HCG QUAL URINE (POCT) Negative Negative [facility] POCT Control Line Present Present [facility] POCT Lot Number [id number] [facility] Expiration Date 10/23/20 [facility] POCT Specimen Performing Organization Address City/State/Zipcode Phone Number [facility] PO[facility] [address] [place] [address] documented in this encounter Visit Diagnoses Diagnosis Extreme obesity - Primary Morbid obesity Missed menses Absence of menstruation documented in this encounter Insurance Payer Benefit Plan / Subscriber ID Effective Dates Phone Address Type Group [employer] RADHA xxxxxxxxxx 2018-Present [employer] Guarantor Name Account Type Relation to Date of Phone Billing Patient Address Perla Cordero Personal/Family [address] (Work) [address] [place] [address] documented as of this encounter
[2019-05-13 09:16] VITALS: BP 125/80
--- NOTE | 2019-05-13 10:13 | UC ---
Respiratory Complaint HPI - HPI Summary HPI Summary: 2 WEEKS OF URI SYMPTOMS INCLUDING COUGH, CONGESTION, SORE THROAT AND FATIGUE. RECENTLY HAS BECOME HOARSE. NO FEVER, N/V. WAS DIAGNOSED YESTERDAY WITH PNEUMONIA. PATIENT IS CONCERNED BECAUSE SHE'LL BE VISITING HER MOTHER-IN- LAW WHO IS IMMUNOCOMPROMISED. - History of Current Complaint Chief Complaint: UCRespiratory Stated Complaint: SORE THROAT, AND COUGH Time Seen by Provider: 05/13/19 09:37 Hx Obtained From: Patient Hx Last Menstrual Period: 04/25/19 Onset/Duration: Gradual Onset, Lasting Weeks, Still Present Timing: Constant Severity Initially: Moderate Severity Currently: Moderate Pain Intensity: 6 Pain Scale Used: 0-10 Numeric Character: Cough: Nonproductive Aggravating Factors: Nothing Alleviating Factors: Nothing Associated Signs And Symptoms: Positive: Chills, Wheezing, URI, Nasal Congestion. Negative: Dyspnea - Allergies/Home Medications Allergies/Adverse Reactions: Allergies Allergy/AdvReac Type Severity Reaction Status Date / Time amoxicillin Allergy anaph Verified 05/13/19 09:16 Home Medications: Home Medications Nuvaring Vaginal Ring 1 % VAGINAL MONTHLY 05/13/19 [History Confirmed 05/13/19] PMH/Surg Hx/FS Hx/Imm Hx Psychological History: Anxiety, Depression - Surgical History Surgical History: Yes Surgery Procedure, Year, and Place: 2007: removal of pilonidal cyst - Family History Known Family History: Positive: Hypertension, Diabetes, Other - Skin cancer, GI disease, anxiety, depression - Social History Alcohol Use: None Substance Use Type: None Smoking Status (MU): Never Smoked Tobacco Have You Smoked in the Last Year: No Review of Systems All Other Systems Reviewed And Are Negative: Yes Constitutional: Positive: Fatigue ENT: Positive: Sore Throat, Nasal Discharge Respiratory: Positive: Cough Cardiovascular: Positive: Negative Gastrointestinal: Positive: Negative Physical Exam Triage Information Reviewed: Yes Appearance: Well-Appearing, No Pain Distress, Well-Nourished Vital Signs: Initial Vital Signs Temp 98.7 F 05/13/19 09:13 Pulse 86 05/13/19 09:13 Resp 18 05/13/19 09:13 BP 125/80 05/13/19 09:13 Pulse Ox 100 05/13/19 09:13 Vital Signs Reviewed: Yes Eyes: Positive: Conjunctiva Clear ENT: Positive: Hearing grossly normal, Pharynx normal, TMs normal Neck: Positive: Supple, Nontender, No Lymphadenopathy Respiratory: Positive: No respiratory distress, No accessory muscle use, Wheezing - DIFFUSE EXPIRATORY WHEEZE Cardiovascular Exam: Normal Abdomen Description: Positive: Soft Musculoskeletal: Positive: No Edema Neurological: Positive: Alert Psychological: Positive: Age Appropriate Behavior Skin: Negative: Rashes Diagnostics - Radiology CXR Radiology Interpretation Completed By: Radiologist Summary of Radiographic Findings: No acute cardiopulmonary process by radiograph Respiratory Course/Dx - Course Course Of Treatment: CHEST X-RAY UNREMARKABLE. PATIENT WITH SOME WHEEZING ON PHYSICAL EXAM. WILL COVER FOR POSSIBLE SECONDARY BACTERIAL PROCESS WITH AZITHROMYCIN. WILL ALSO TREAT AIRWAY INFLAMMATION WITH PREDNISONE AND ALBUTEROL. RECOMMEND FOLLOW-UP WITH PCP IF SHE IS NOT IMPROVING EXPECTED WITH THIS TREATMENT. - Differential Dx/Diagnosis Provider Diagnosis: Acute bronchitis Discharge ED - Sign-Out/Discharge Documenting (check all that apply): Patient Departure All imaging exams completed and their final reports reviewed: Yes - Discharge Plan Condition: Stable Disposition: HOME Prescriptions: Albuterol HFA INHALER* [Ventolin HFA Inhaler*] 2 puff INH Q4H PRN #1 mdi PRN Reason: Shortness Of Breath Azithromycin 500 mg PO DAILY #5 tablet predniSONE TAB* [Deltasone 20 MG TAB*] 40 mg PO DAILY #10 tab Patient Education Materials: Acute Bronchitis (ED) Referrals: Malcolm Childs MD [Primary Care Provider] - If Needed Additional Instructions: CHEST XRAY TODAY UNREMARKABLE. YOUR SYMPTOMS MAY BE VIRALLY MEDIATED BUT GIVEN THE LENGTH OF TIME YOU HAVE BEEN ILL WE WILL COVER YOU WITH ANTIBIOTICS. IF YOU START THE MEDICINE BE SURE TO TAKE IT FOR THE FULL COURSE. REST, HYDRATE, OTC MEDS NEEDED. WILL ALSO TREAT WITH PREDNISONE AND ALBUTEROL TO HELP WITH AIRWAY INFLAMMATION. SEEK FOLLOW-UP WITH YOUR PCP IF YOU ARE NOT IMPROVING OVER THE NEXT 1-2 WEEKS. USE OTC AFRIN FOR NASAL CONGESTION. 2 SPRAYS IN EACH NOSTRIL TWICE DAILY NEEDED. DO NOT USE FOR MORE THAN 3-4 DAYS IN A ROW TO PREVENT DEVELOPING REBOUND CONGESTION. - Billing Disposition and Condition Condition: STABLE Disposition: Home
== END 2019-05-13 10:56 | disposition home or self-care (01) ==
LOC: UCEAST 09:07
DX: J20.9 Acute bronchitis, unspecified (principal); R09.89 Other specified symptoms and signs involving the circulatory and respiratory systems; Z88.0 Allergy status to penicillin
CPT/HCPCS: 71046; 99212; G0463

== ENCOUNTER 2019-06-02 17:33 | Emergency (ER) | payer OTHER ==
--- NOTE | 2019-06-02 17:47 | UC ---
Cardiac HPI - HPI Summary HPI Summary: 28 yo female presents with heart burn. She tells me that 3 days ago she noticed some burning in her central chest with increased belching. Today she ate oatmeal and noticed a pain in her RUQ and worsening heart burn that, when she burped, went into her neck. This, admittedly, made her anxious and she stated to have a panic attack and she began to have pressure in her central chest. She became concerned she was having a heart attack - prompting her visit to . Since being here she feels fine, but still with slight burning in epigastric region. She took peptobismal yesterday with mild relief. She did get over bronchitis about 2 weeks ago. Denies fever, chills, sinus symptoms, sore throat , SOB, nausea, vomiting, diarrhea, dysuria, back pain. LMP was 1 month ago. She has never had any abdominal surgeries. No family or personal hx of ACS or CAD. - History of Current Complaint Stated Complaint: CHEST, JAW PAIN Time Seen by Provider: 06/02/19 17:47 Hx Obtained From: Patient Hx Last Menstrual Period: 04/25/19 Onset/Duration: Gradual Onset Initial Severity: Mild Current Severity: Moderate Pain Intensity: 5 - Allergy/Home Medications Allergies/Adverse Reactions: Allergies Allergy/AdvReac Type Severity Reaction Status Date / Time amoxicillin Allergy anaph Verified 06/02/19 17:48 PMH/Surg Hx/FS Hx/Imm Hx Psychological History: Anxiety - Surgical History Surgical History: Yes Surgery Procedure, Year, and Place: 2007: removal of pilonidal cyst - Family History Known Family History: Positive: Hypertension, Diabetes, Other - Skin cancer, GI disease, anxiety, depression - Social History Lives: With Family Alcohol Use: None Substance Use Type: None Smoking Status (MU): Never Smoked Tobacco Have You Smoked in the Last Year: No Review of Systems All Other Systems Reviewed And Are Negative: No Constitutional: Positive: Negative Skin: Positive: Negative Eyes: Positive: Negative ENT: Positive: Negative Respiratory: Positive: Negative Cardiovascular: Positive: Negative Gastrointestinal: Positive: Other - heart burn Motor: Positive: Negative Neurovascular: Positive: Negative Musculoskeletal: Positive: Negative Neurological: Positive: Negative Psychological: Positive: Anxious Physical Exam - Summary Physical Exam Summary: GENERAL: NAD. WDWN. No pain distress. SKIN: No rashes, sores, or open wounds. HEENT: Head: AT/NC Eyes: PERRLA. EOM intact. Conjunctiva clear without inflammation or discharge. Ears: Hearing grossly normal. TMs intact, no bulging, erythema, or edema. Nose: Nasal mucosa pink and moist. NTTP maxillary and frontal sinus. Throat: Posterior oropharynx without exudates, erythema, or tonsillar enlargement. Uvula midline. NECK: Supple. Nontender. No lymphadenopathy. CHEST: CTAB. No r/r/w. No accessory muscle use. Breathing comfortably and in no distress. CV: RRR. Pulses intact. Brisk cap refill. ABDOMEN: Soft. NTTP. No distention or guarding. No CVA tenderness. Bowel sounds present. Negative perez sign. No mcburney point tenderness. NEURO: Alert. PSYCH: Age appropriate behavior. Triage Information Reviewed: Yes Vital Signs: Vital Signs: Temp Pulse Resp BP Pulse Ox 99 F 82 18 132/80 100 06/02/19 17:37 06/02/19 17:37 06/02/19 17:37 06/02/19 17:37 06/02/19 17:37 Laboratory Tests 06/02/19 06/02/19 19:00 19:01 POC Urine Color Yellow POC Urine Clarity Clear POC Urine pH 7.0 POC Ur Specif [place] <= 1.005 L POC Urine Protein Negative POC Ur Glucose (UA) Negative POC Urine Ketones Negative POC Urine Blood Negative POC Urine Nitrite Negative POC Urine Bilirubin Negative POC Urine Urobilinogen 0.2 POC U Leukocyte Esteras Negative POC Ur Test Negative Vital Signs Reviewed: Yes Diagnostics - EKG Summary of EKG Findings: 84bpm NSR. No STEMI as read by Dr. Bautista Re-Evaluation - Re-Evaluation First Eval Re-Evaluation Time: 19:01 Change: Improved Comment: Heartburn relieved s/p maalox and pepcid. Still noting feeling "pressure" in her chest with deep breaths. - Assessment/Plan Course Of Treatment: EKG as above. Discussed with pt that I cannot rule out ACS in the UC and, given her symptoms, recommend going to the ED for further evaluation. She did not want to do this as she feels her symptoms are related to heartburn - she is asking for treatment and eval here. I made her aware of the risks such as worsening condition, syncope, permanent disability, or if underlying ACS or cardiac event were to happen - she voiced understanding and continued to decline ED eval/transfer. In the clinic she was given pepcid and maalox for her symptoms and on re- evaluation felt much better as far as the heart burn, but still noted some "pressure" in her chest. Again, I discussed going to the ER, but she declined and prefers to go home and monitor her symptoms herself and if symptoms worsen will go to the ED then. In the meantime, will rx for pepcid and maalox as this did give her relief of her heartburn in the clinic. - Clinical Impression Provider Diagnosis: GERD (gastroesophageal reflux disease), Chest pressure Discharge ED - Sign-Out/Discharge Documenting (check all that apply): Patient Departure All imaging exams completed and their final reports reviewed: No Studies - Discharge Plan Condition: Stable Disposition: HOME Prescriptions: Al Hydrox/Mg Hydrox/Simet LIQ* [Maalox Plus*] 30 ml PO Q6H PRN #1 bottle PRN Reason: Heartburn Famotidine TAB* [Pepcid 20 MG TAB*] 20 mg PO DAILY #30 tab Patient Education Materials: Chest Pain (ED), Gastroesophageal Reflux Disease ( ED) Referrals: Malcolm Childs MD [Primary Care Provider] - Additional Instructions: If you develop a fever, shortness of breath, chest pain, new or worsening symptoms - please call your PCP or go to the ED immediately. As discussed, if your chest pressure worsens or if you develop new symptoms - please go to the ER immediately for further evaluation - Billing Disposition and Condition Condition: STABLE Disposition: Home
[2019-06-02 17:48] VITALS: BP 132/80
[2019-06-02] MEDS ORDERED: Famotidine TAB* 20 MG PO ONE (18:20)
[2019-06-02] MEDS ORDERED: Al Hydrox/Mg Hydrox/Simet LIQ* 30 ML UDC PO ONE (18:20)
== END 2019-06-02 19:20 | disposition home or self-care (01) ==
LOC: UCEAST 17:33
DX: K21.9 Gastro-esophageal reflux disease without esophagitis (principal); R09.89 Other specified symptoms and signs involving the circulatory and respiratory systems; Z88.0 Allergy status to penicillin
CPT/HCPCS: 81003; 84702; 99212; A9270-GY; G0463

== ENCOUNTER 2020-03-29 00:58 | Observation (INO) ==
[2020-03-29] MEDS ORDERED: Charcoal ACTIVATED 25 GM/120 ML BTL PO ONE ×2 (01:32→01:59)
[2020-03-29 01:54] LABS: Hematocrit 42 % (35-47); Mean Corpuscular HGB Conc 33 g/dL (31-36); Mean Corpuscular Hemoglobin 28 pg (27-31); Mean Corpuscular Volume 83 fL (80-97); Mean Platelet Volume 8.4 fL (7.4-10.4); Platelet Count 349 10^3/uL (150-450); Red Blood Count 5.04 10^6 /uL (3.70-4.87); Red Cell Distribution Width 14 % (10-15); White Blood Count 11.8 10^3/uL (3.5-10.8)
[2020-03-29 02:08] LABS: CO2 Carbon Dioxide 24 mmol/L (22-32); Calcium 8.9 mg/dL (8.6-10.3); Chloride 103 mmol/L (101-111); Sodium 135 mmol/L (135-145)
[2020-03-29 02:14] LABS: ALT 17 U/L (7-52); Albumin/Globulin Ratio 1.3 (1-3); Alkaline Phosphatase 75 U/L (34-104); BUN/Creatinine Ratio 16.5 (8-20); Blood Urea Nitrogen 14 mg/dL (6-24); EGFR African American 94.4 (>60); Glucose 106 mg/dL (70-100)
[2020-03-29 02:17] LABS: HCG Pregnancy 0.79 mIU/mL
[2020-03-29 02:24] LABS: Anion Gap 8 mmol/L (2-11)
[2020-03-29 02:49] LABS: Potassium Redraw 3.8 mmol/L (3.5-5.0)
[2020-03-29 03:27] LABS: ABS Basophils 0.2 10^3/ul (0-0.2); ABS Eosinophils 0.1 10^3/ul (0-0.6); ABS Lymphocytes 3.7 10^3/ul (1.0-4.8); ABS Monocytes 0.6 10^3/ul (0-0.8); ABS Neutrophils 7.1 10^3/ul (1.5-7.7); Eosinophil % 1.1 %; Lymphocyte % 31.8 %
[2020-03-29 15:35] VITALS: BP 122/55
== END 2020-03-29 18:23 | disposition home or self-care (01) ==
LOC: ED 00:58 → MEDTELE 00:58
PROVIDERS: ADMIT Internal Medicine; ATTEND Hospitalist

== ENCOUNTER 2024-01-07 19:55 | Inpatient (IN) ==
[2024-01-07 21:40] LABS: ABS Basophils 0.1 10^3/uL (0.0-0.1); ABS Eosinophils 0.1 10^3/uL (0.0-0.5); ABS Lymphocytes 3.3 10^3/uL (1.0-4.8); ABS Monocytes 0.5 10^3/uL (0.0-0.9); Eosinophil % 0.6 %; Hematocrit 38.2 % (35-45); Hemoglobin 12.7 g/dL (11.5-14.3); Lymphocyte % 29.6 %; Mean Corpuscular Hgb Conc 33.3 g/dL (31-36); Mean Corpuscular Volume 81.2 fL (80-97); Mean Platelet Volume 8.4 fL (7.5-11.2); Platelet Count 314 10^3/uL (150-450); Red Blood Count 4.71 10^6/uL (3.63-4.92); Red Cell Distribution Width 15.2 % (12-17)
[2024-01-07 21:42] LABS: Urine Appearance Clear; Urine Bilirubin Negative (Negative); Urine Blood Negative (Negative); Urine Color Dark-Yellow; Urine Glucose Negative (Negative); Urine Ketones Negative (Negative); Urine Nitrite Negative (Negative); Urine Protein Negative (Negative); Urine Specific Gravity 1.022 (1.002-1.030); Urine Urobilinogen Negative (Negative); Urine pH 5.5 (5.0-8.0)
[2024-01-07 21:51] LABS: Urine Benzodiazepine Screen Presumptive Positive (None Detect); Urine Cannabinoids Screen None Detected (None Detect); Urine Opiates Screen None Detected (None Detect)
[2024-01-07 22:45] LABS: ALT 19 U/L (7-52); AST 14 U/L (13-39); Acetaminophen < 15 mcg/mL; Albumin 4.2 g/dL (3.2-5.2); Albumin/Globulin Ratio 1.9 (1-3); Alcohol, S < 13 mg/dL (<13); Alkaline Phosphatase 82 U/L (35-149); Anion Gap 8 mmol/L (2-16); Blood Urea Nitrogen 10 mg/dL (6-24); CO2 Carbon Dioxide 28 mmol/L (22-32); Calcium 9.4 mg/dL (8.6-10.3); Chloride 103 mmol/L (101-111); Creatinine, Serum 0.84 mg/dL (0.51-0.95); Globulin 2.2 g/dL (2-4); Glucose 111 mg/dL (70-100); Potassium 3.6 mmol/L (3.5-5.0); Salicylate < 2.50 mg/dL (<30); Sodium 139 mmol/L (135-145); Total Bilirubin 0.4 mg/dL (0.2-1.0); Total Protein 6.4 g/dL (6.4-8.9); eGFR CKD-EPI 92.9 (>60)
[2024-01-07 22:48] LABS: HCG Pregnancy < 0.60 mIU/mL
[2024-01-07 22:57] LABS: TSH Ultra Thyroid Stim Horm 1.89 mcIU/mL (0.34-5.60)
[2024-01-08] MEDS ORDERED: Al Hydrox/Mg Hydrox/Simet LIQ 30 ML UDC PO PRN (06:29)
[2024-01-08] MEDS: Vitamin THERAPEUTIC TAB PO SCH (08:20)
[2024-01-08] MEDS ORDERED: Ondansetron ODT 4 mg TAB 4 MG TAB SL PRN (10:02)
[2024-01-08] MEDS: CMCS: Riboflavin (B2) 100 mg TAB(NF) PO SCH (11:29)
[2024-01-08] MEDS: Cholecalciferol (VIT D3) 1,000 unit TAB PO SCH (11:29)
[2024-01-08] MEDS: PTO:Metformin ER 500 mg TAB (NF) PO SCH (21:06)
[2024-01-09 08:01] LABS: HDL Cholesterol 44.1 mg/dL
[2024-01-09] MEDS ORDERED: Cholecalciferol (VIT D3) 1,000 unit TAB PO SCH (09:00)
[2024-01-09] MEDS: Cholecalciferol (VIT D3) 1,000 unit TAB PO SCH (11:00)
[2024-01-10 00:59] VITALS: BP 127/80
[2024-01-12] MEDS: COVID VAC 23-24(12+)(Moderna) SYR 0.5 ML IM ONE (12:52)
== END 2024-01-12 16:40 | disposition home or self-care (01) | DRG 751 ==
LOC: ED 19:55 → BSU 01-08 06:59 → EDHOLD 01-08 07:20 → BSU 01-08 07:23
PROVIDERS: ADMIT Psychiatry & Neurology Psychiatry; ATTEND Psychiatry & Neurology Psychiatry